=== PATIENT | female | born 1945 | race Caucasian/White ===

== ENCOUNTER → 2016-12-21 | Outpatient (CLI) | payer MEDICARE, OTHER ==
--- NOTE | 2016-12-21 14:44 | CT ---
Procedure: CT CHEST WITHOUT IV CONTRAST Exam Date: 12/21/2016 Ordering Provider: WAGNER LIGHT Clinical Indication: CHRONIC COUGH PAIN R05 Comparison: None TECHNIQUE: 5 mm images were taken through the chest without intravenous contrast material. Coronal and sagittal reformatted images were generated. This exam was performed according to our departmental dose optimization program which includes use of automated exposure control, adjustment of the mA and/or kV according to patient size and/or use of iterative reconstruction technique. FINDINGS: Lines/Tubes/Devices: None Lungs and large airways: Central airways are patent. No focal lung consolidation. There are a few subcentimeter calcified granulomas bilaterally. Atelectasis/scarring in the medial right lower lobe. Scarring in the lingula and left lower lobe. No suspicious lung lesions. Pleura: No pleural effusion. No pneumothorax. Mediastinum and laurent: No lymphadenopathy Heart and great vessels: Borderline cardiomegaly. No aortic aneurysm. Chest wall, lower neck, axillae: No axillary lymphadenopathy. Visualized thyroid is unremarkable. Upper abdomen: No acute abnormalities in the visualized upper abdomen. Bones: Nonacute IMPRESSION: 1. No acute abnormalities in the chest. 2. Borderline cardiomegaly. 3. Evidence of prior granulomatous disease. Electronically signed by: Fede Huitron MD 12/21/2016 2:43 PM CDT
--- NOTE | 2016-12-21 16:13 | CT ---
EXAM DESCRIPTION: Cervical Spine CLINICAL HISTORY: 71 years,Female,NECK PAIN. M54.2 COMPARISON: None TECHNIQUE: CT performed multiple axial helical tomographic images of the cervical spine from the skull base through T3. Then reconstructed sagittal coronal planes. FINDINGS: No evidence of fracture of the cervical spine. There is reversal lordotic curvature of the cervical spine. Surrounding soft tissues unremarkable. Dense and arch of C1: Unremarkable for age and volume mild ossified changes The lung apices and superior mediastinum unremarkable. Skull base and included paranasal sinuses unremarkable. C2-3: There is moderate loss of disc height. Minimal disc bulge. Facets are unremarkable for age. No neural foraminal stenosis. No spinal canal stenosis. C3-4: There is moderate to severe loss of disc height. Mild disc ossify complex with uncovertebral joint osteophytes. Facets are unremarkable for age. Mild to moderate right mild left neural foraminal stenosis. No spinal canal stenosis. C4-5: There is severely loss disc height. Mild broad-based disc ossify complex but with a large left uncovertebral joint osteophyte and side osteophyte. Facets are mildly hypertrophic worse on the left. Severe left neural foraminal stenosis. No spinal canal stenosis. C5-6: There is moderate to severe loss disc height. Mild broad-based disc ossify complex with moderate left uncovertebral osteophyte. Facets are age-appropriate hypertrophic. Moderate to severe left neural foraminal stenosis minimal right. No spinal canal stenosis. C6-7: There is moderate loss of disc height. Mild broad-based disc ossify complex with moderate left sided osteophyte and uncovertebral joint osteophyte. Facets are age-appropriate hypertrophy. Moderate left neural foraminal stenosis minimal right. No spinal canal stenosis. C7-T1: Demonstrates moderate to severe facet hypertrophy. No significant disc bulge or loss of disc height. And mild 1 to 2 mm of anterior degenerative fixation of C7 on T1. And moderate left neural foraminal stenosis. IMPRESSION: There is neural foraminal stenosis see mostly on the left beginning at C3-4 through C6-7 due mostly to uncovertebral joint osteophytes. And moderate on the right at C3-4. Disc ossify complexes throughout the cervical spine with reversal of lordotic curvature as described above. But no spinal canal stenosis. And the facet arthropathy is mostly mild throughout cervical spine but moderate to severe at C7-T1. Which results in some mild anterior degenerative subluxation and left moderate neural foraminal stenosis Electronically signed by: Andrew Miller MD 12/21/2016 4:12 PM CDT
--- NOTE | 2016-12-21 17:46 | US ---
EXAM DESCRIPTION: Thyroid CLINICAL HISTORY: 71 years, Female, NONTOXIC GOITER COMPARISON: None. TECHNIQUE: Multiple real-time sonographic images were obtained of the thyroid. FINDINGS: The right lobe demonstrates a few small heterogenous but mostly hypoechoic well described nodule seen. Both and upper lobe. The largest 8 x 4 mm and the other one is 3 x 2 mm The left lobe demonstrates similar-appearing nodules in the upper lobe measuring 7 x 3 and 6 x 3 mm The right lobe measures 4.2 cm in length by 1.7 x 1.2 cm. The left lobe measures 4.7 cm in length by 1.6 x 1.4 cm. And the isthmus measures 3 mm in thickness. Surrounding soft tissues are unremarkable. IMPRESSION: Two small nonspecific but most likely benign nodule seen in each upper lobe of the thyroid Electronically signed by: Andrew Miller MD 12/21/2016 5:46 PM CDT
== END | disposition home or self-care (01) ==
LOC: CT 07:42
PROVIDERS: ATTEND Family Medicine
DX: M54.2 Cervicalgia (principal); R05 Cough; E04.9 Nontoxic goiter, unspecified

== ENCOUNTER → 2017-10-03 | Outpatient (CLI) | payer MEDICARE, OTHER | END | disposition home or self-care (01) | LOC: MAMMO 16:30 | PROVIDERS: ATTEND Internal Medicine | DX: Z12.31 Encounter for screening mammogram for malignant neoplasm of breast (principal) ==

== ENCOUNTER → 2018-10-13 | Outpatient (CLI) | payer MEDICARE, OTHER ==
--- NOTE | 2018-10-14 17:29 | MAM ---
EXAM DESCRIPTION: 3D Screening BILATERAL : Digital Mammography. CLINICAL HISTORY: 73 years Female SCREENING . No complaints or personal history of breast cancer. Remote family history of breast cancer. Childbirth. Postmenopausal. No HRT. Bilateral cyst aspirations and benign left breast biopsy.. Lifetime risk of developing breast cancer (Tyrer-Cuzick model)(%): 4.7. COMPARISON: Bilateral screening digital breast tomosynthesis 10/03/2017.. TECHNIQUE: Bilateral CC and MLO projection full-field images, digital tomosynthesis mammographic technique. Bilateral digital 2-D full-field MLO images. CAD not available for tomosynthesis or 2-D images. FINDINGS: The breast parenchymal density pattern is: Scattered areas of fibroglandular density. No skin thickening or nipple retraction. Left axillary lymph nodes. Bilateral solitary microcalcifications. Group of benign type calcifications in the anterior right breast. No new focal, stellate mass or density, focal asymmetry , and no suspicious microcalcifications bilaterally. Stable mammograms compared to prior study. IMPRESSION: Benign exam. BIRAD CATEGORY: 2 BENIGN FINDINGS. RECOMMENDATIONS: FOLLOW UP: Routine digital bilateral mammographic screening, one year interval from September 2018. Written communication explaining the IMPRESSION and follow-up, will be mailed to the patient and referring health care provider. According to the [employer], yearly mammograms are recommended starting at age 40 and continuing as long as a woman is in good health. Any breast change noted on a breast self-exam should be reported promptly to the patient's healthcare provider. Breast MRI is recommended for women with an approximately 20-25% or greater lifetime risk of breast cancer, including women with a strong family history of breast or ovarian cancer and women who have been treated for Hodgkin's disease. A negative mammographic report should not delay tissue diagnosis in patients with significant clinical history or physical findings. Extremely dense breast tissue limits the sensitivity of digital mammography. Electronically signed by: Chucky Coe MD 10/14/2018 5:28 PM [employer]
== END ==
LOC: MAMMO 10:00
PROVIDERS: ATTEND Family Medicine
DX: Z12.31 Encounter for screening mammogram for malignant neoplasm of breast (principal)

== ENCOUNTER → 2019-10-16 | Outpatient (CLI) | payer MEDICARE, OTHER ==
--- NOTE | 2019-10-20 10:49 | MAM ---
EXAM DESCRIPTION: 3D Screening BILATERAL : Digital Mammography. CLINICAL HISTORY: 74 years Female ANNUAL SCREENING . No complaints. No personal history of breast cancer. Remote family history of breast cancer. Menarche age 15. Childbirth age 21. Menopause age "early 40s". Previous use of HRT but not currently. Bilateral benign cyst aspirations. Benign left breast biopsy. Lifetime risk of developing breast cancer (Tyrer-Cuzick model)(%): 6.2. COMPARISON: Bilateral screening digital breast tomosynthesis September 2018 and September 2017. TECHNIQUE: Bilateral CC and MLO projection full-field images, digital tomosynthesis mammographic technique. Bilateral digital 2-D full-field MLO images. CAD available for 2-D images. FINDINGS: The breast parenchymal density pattern is: Scattered areas of fibroglandular density. No skin thickening or nipple retraction. Bilateral solitary microcalcifications more on the left. Bilateral intramammary lymph nodes. No new focal, stellate mass or density, focal asymmetry , and no suspicious microcalcifications bilaterally. Stable mammograms compared to prior study. IMPRESSION: Benign exam. BIRAD CATEGORY: 2 BENIGN FINDINGS. RECOMMENDATIONS: FOLLOW UP: Routine digital bilateral mammographic screening, one year interval from September 2019. Written communication explaining the IMPRESSION and follow-up, will be mailed to the patient and referring health care provider. According to the [employer], yearly mammograms are recommended starting at age 40 and continuing as long as a woman is in good health. Any breast change noted on a breast self-exam should be reported promptly to the patient's healthcare provider. Breast MRI is recommended for women with an approximately 20-25% or greater lifetime risk of breast cancer, including women with a strong family history of breast or ovarian cancer and women who have been treated for Hodgkin's disease. A negative mammographic report should not delay tissue diagnosis in patients with significant clinical history or physical findings. Extremely dense breast tissue limits the sensitivity of digital mammography. Electronically signed by: Chucky Coe MD 10/20/2019 10:48 AM [facility]
== END ==
LOC: MAMMO 09:00
PROVIDERS: ATTEND Family Medicine
DX: Z12.31 Encounter for screening mammogram for malignant neoplasm of breast (principal)

== ENCOUNTER 2020-04-17 16:34 | Emergency (ER) | payer MEDICARE, OTHER ==
--- NOTE | 2020-04-17 17:08 | ED.PDOC ---
History of Present Illness - General Chief Complaint: Lower Extremity Injury Stated Complaint: Left knee pain, left calf swelling Time Seen by Provider: 04/17/20 17:03 - History of Present Illness Initial Comments: Javier 75 yo F with a PMH of HTN and OA, comes in with Right knee pain and leg swelling, States she had bilateral knee replacement 10 years ago. has issues off and on, but last night could not sleep because her knees were bothering her. She also felt her right leg was swollen and sore from the posterior calf to thigh. no recent travel or recent surgery. Does think she is less mobile than usual. no hx of blood clot. Notice some burising on her posterior calf so she came in. BP elevated on arrival. denies cp/sob/abdominal pain/n/v/d. no change in vision. States she just took her BP med prior to coming in.does not check her bp at home. no cardiac history patient does note shes been drinking a lot of caffeine Allergies/Adverse Reactions: Allergies Azithromycin [From Zithromax] Allergy (Severe, Unverified 05/06/13 13:25) Cephalexin [From Keflex] Allergy (Severe, Unverified 05/06/13 13:23) Levofloxacin [From Levaquin] Allergy (Severe, Unverified 05/06/13 13:23) Moxifloxacin [From Avelox] Allergy (Severe, Unverified 05/06/13 13:23) Penicillins Allergy (Severe, Unverified 05/06/13 13:22) Pitavastatin [From Livalo] Allergy (Severe, Unverified 05/06/13 13:25) Pregabalin [From Lyrica] Allergy (Severe, Unverified 05/06/13 13:25) Rosuvastatin [From Crestor] Allergy (Severe, Unverified 05/06/13 13:24) Sulfa Drugs Allergy (Severe, Unverified 05/06/13 13:24) Home Medications: Ambulatory Orders Pantoprazole Tablet [Protonix] 40 mg PO DAILY 07/06/13 Aspirin [Aspirin Childrens] 81 mg PO BID 04/17/20 Meloxicam [Mobic] 15 mg PO DAILY 04/17/20 Nebivolol HCl [Bystolic] 20 mg PO DAILY 04/17/20 Review of Systems - Review of Systems Constitutional: Denies: diaphoresis, fever, malaise EENTM: Denies: eye pain, blurred vision, tearing Respiratory: Denies: cough, orthopnea, short of breath, stridor, wheezing Cardiology: Denies: chest pain, palpitations, syncope Gastrointestinal/Abdominal: Denies: abdominal pain, diarrhea, nausea, vomiting Genitourinary: Denies: dysuria, frequency Musculoskeletal: States: back pain - chronic L4 l5 back pain, denies loss of urine, or retention. no change in bowels, no numbness, joint pain, joint swelling, muscle pain. Denies: muscle stiffness Skin: Denies: change in hair/nails, dryness, lumps, rash Neurological: Denies: anxiety, depressed, headache, numbness, paresthesia, tingling, weakness Endocrine: Denies: excessive sweating, intolerance to cold, intolerance to heat Hematologic/Lymphatic: Denies: blood clots, easy bleeding, easy bruising All other Systems: Reviewed and Negative Past Medical History (General) - Patient Medical History Hx Stroke: No Hx of COPD: No Hx Cardiac Disorders: No Hx Congestive Heart Failure: No Hx Hypertension: Yes Hx Diabetes: No Hx Gastroesophageal Reflux: Yes Hx Cancer: No Family Medical History - Family History Father Hx Cardiac Disease: Yes - [place] Physical Exam - Physical Exam General Appearance: Alert, Comfortable, Well Developed, Well Groomed, Well Nourished Eyes, Ears, Nose, Throat: PERRL/EOMI, normal ENT inspection Neck: non-tender, supple, normal inspection Cardiovascular/Respiratory: regular rate, rhythm, no M/R/G, normal peripheral pulses, no JVD, normal breath sounds, no respiratory distress Gastrointestinal/Abdominal: non-tender, no organomegaly, guarding, tenderness Back: normal inspection, no CVA tenderness, no vertebral tenderness Thigh/Hip: other - trace to none nonpitting swelling, tenderness along posterior calf, no bruise appreciated. Leg: normal inspection - mild tenderness as noted above , no evidence of injury, normal ROM, swelling - mild posterior swelling just distal to knee Knee: normal inspection, non-tender, no evidence of injury, normal ROM, deformity, swelling, other - no erythema or tenderness no sign of infection DTR - Lower Extremities: 2+: Patellar, left, Patellar, right Neuro/Tendon: normal sensation, normal motor functions Mental Status: alert, oriented x 3 Skin: normal color, warm/dry Progress - Progress Progress: Will get d-dimer due to low probability of dvt. 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 EKG showed incomplete LBBB. poor r wave progression, none prior to compare. NSR with rate 69. Troponin negative. BMP 164, most likely has a degree of heart failure with normal EF from chronic htn, no evidence of acute CHF exacerbation currently. CBC and CMP unremarkable. D-dimer 550. knee xray showed no evidence of knee replacement displacement. Did show effusion. no fever, erythema or significant knee pain, aspiration not indicated at this time. Venous US showed no evidence of DVT. Patient has hx of uncontrolled htn. She is to call tomorrow to schedule follow up. The data reviewed when caring for this patient included: nurse notes etc. The history and assessments from nurses notes were reviewed and considered, and the patient's home medication list was also reviewed and considered. My assessment and the results of testing completed here in the ED were discussed with the patient/friend. All questions were answered, and they express understanding of my assessment and the plan. They have been instructed to return if their symptoms worsen, and have been asked to follow up with their primary care physician to recheck today's presenting complaint. Biling code 801 04/17/20 18:38 04/17/20 18:39 04/17/20 20:05 04/17/20 20:07 04/17/20 20:09 Departure - Departure Clinical Impression: Knee pain, Leg pain, posterior, Hypertension Time of Disposition: 19:54 Disposition: Discharge to Home or Self Care Condition: Good Departure Forms: ED Discharge - Pt. Copy, Patient Portal Self Enrollment Instructions: Electrocardiogram, DI for Leg Pain, Low Salt Diet, Knee Pain Activity: other - as tolerated Referrals: SAHIL ALEXANDRE MD [Primary Care Provider] - 1-2 Days Home Medications: Ambulatory Orders Pantoprazole Tablet [Protonix] 40 mg PO DAILY 07/06/13 Aspirin [Aspirin Childrens] 81 mg PO BID 04/17/20 Meloxicam [Mobic] 15 mg PO DAILY 04/17/20 Nebivolol HCl [Bystolic] 20 mg PO DAILY 04/17/20 Additional Instructions: follow up with PCP as well as your orthopedic physician in [facility]
--- NOTE | 2020-04-17 18:06 | RAD ---
EXAM DESCRIPTION: XR Chest, 2 Views CLINICAL HISTORY: 75 years Female hypertension, swelling of LE TECHNIQUE: Two views of the chest. COMPARISON: No prior exams provided for comparison. FINDINGS: The lungs are clear without focal consolidation, effusion, or pneumothorax. The cardiomediastinal silhouette and central pulmonary vasculature are normal. No acute osseous abnormalities. IMPRESSION: No acute cardiopulmonary abnormalities. Electronically signed by: Tammy Guzman MD 04/17/2020 6:04 PM CDT
[2020-04-17 18:07] VITALS: O2SAT 97
--- NOTE | 2020-04-17 18:07 | RAD ---
EXAM DESCRIPTION: XR Knee, Left Complete CLINICAL HISTORY: 75 years Female knee pain TECHNIQUE: Three views of the left knee are provided. COMPARISON: No prior exams provided for comparison. FINDINGS: Patient is status post prior cemented total left knee arthroplasty with patellar resurfacing. No evidence of hardware loosening, fracture, or dislocation. Difficult to exclude a small suprapatellar joint effusion. No aggressive osseous lesion or soft tissue gas. IMPRESSION: Prior left knee arthroplasty without acute osseous abnormality. Possible small left suprapatellar joint effusion. If there is concern for infection, consider aspiration. Electronically signed by: Tammy Guzman MD 04/17/2020 6:06 PM CDT
[2020-04-17] MEDS ORDERED: HYDROcodone 5MG/APAP 325MG 1 EA TAB PO ONE (18:36)
[2020-04-17 20:06] VITALS: BP 193/109; TEMP 97.9
--- NOTE | 2020-04-17 20:06 | US ---
EXAM DESCRIPTION: Venous,Lower Extremity LT CLINICAL HISTORY: 75 years, Female, leg pain,s welling, high ddimer COMPARISON: None. FINDINGS: Duplex imaging of the deep venous system of left lower extremity was performed with visualization from the common femoral veins to the popliteal veins and posterior tibial vein. There is normal compressibility, augmentation and flow with no visualized thrombus. No focal fluid collection is identified. IMPRESSION: Negative for DVT in the left lower extremity. Electronically signed by: Edmund Mejia DO 04/17/2020 8:04 PM CDT
== END 2020-04-17 20:08 | disposition home or self-care (01) ==
LOC: ER 16:34
DX: M25.562 Pain in left knee (principal); M79.662 Pain in left lower leg; I10 Essential (primary) hypertension; K21.9 Gastro-esophageal reflux disease without esophagitis; I44.7 Left bundle-branch block, unspecified; Z96.653 Presence of artificial knee joint, bilateral; Z79.82 Long term (current) use of aspirin; Z79.899 Other long term (current) drug therapy; Z88.8 Allergy status to other drugs, medicaments and biological substances; Z88.1 Allergy status to other antibiotic agents; Z88.0 Allergy status to penicillin; Z88.2 Allergy status to sulfonamides

== ENCOUNTER → 2020-04-29 | Outpatient (CLI) | payer MEDICARE, OTHER ==
--- NOTE | 2020-04-29 13:18 | MRI ---
Study: MRI of the Left Tibia/Fibula. Indication: PAIN LOWER LEG Technique: Multiplanar, multi sequence MRI of the left tibial/fibula was obtained without intravenous contrast. Comparison: Ultrasound and radiographs April 11 6020. Findings: Scattered moderate subcutaneous edema about the left lower leg without drainable/organized fluid collection. There is mild intramuscular edema within the inferolateral aspect of the medial gastrocnemius muscle and adjacent minimal edema in the lateral gastrocnemius muscle. Edema tracks along the superficial fascial planes of these muscles. Findings likely reflect sequela of muscle strain. Myositis is also a consideration. No muscle tear. No acute fracture or left tibia or fibula. Impression: Subtle intramuscular edema within the gastrocnemius musculature, likely muscle strains or myositis. No muscle tear Subcutaneous edema throughout the left lower leg without drainable fluid collection. No acute fracture of the left tibia or fibula. Electronically signed by: Erik Washington MD 04/29/2020 1:17 PM CDT
== END ==
LOC: MRI 07:00
PROVIDERS: ATTEND Family Medicine
DX: M79.605 Pain in left leg (principal); R60.9 Edema, unspecified

== ENCOUNTER → 2020-05-03 | Outpatient (CLI) | payer MEDICARE, OTHER | LOC: GMAE 16:42 | PROVIDERS: ATTEND Family Medicine | DX: M60.062 Infective myositis, left lower leg (principal) ==

== ENCOUNTER → 2020-06-10 | Outpatient (CLI) | payer MEDICARE, OTHER ==
--- NOTE | 2020-06-10 13:59 | RAD ---
EXAM DESCRIPTION: Pelvis CLINICAL HISTORY: HIP PAIN LEFT COMPARISON: None. TECHNIQUE: AP pelvis FINDINGS: Mild degenerative changes are observed in the lower lumbar spine. The pelvis is intact. No fracturing is detected. The proximal femurs are unremarkable. No pelvic mass is observed. A phlebolith is seen in the right side of the pelvis. Mild osteopenia is observed. No fracturing is detected. IMPRESSION: No pelvic or hip fracturing is detected. Electronically signed by: Andrew Gibson MD 06/10/2020 1:58 PM CDT
--- NOTE | 2020-06-10 14:00 | RAD ---
EXAM DESCRIPTION: Knee,Left 1 or 2 Views CLINICAL HISTORY: PAIN IN LEFT KNEE COMPARISON: 17 April 2020 TECHNIQUE: Lateral view of the left knee FINDINGS: A total knee arthroplasty is observed. A joint effusion is evident. No evidence of loosening or infection is seen. No fracturing is detected. IMPRESSION: Lateral view of the knee reveals a total knee arthroplasty and evidence of a joint effusion. Electronically signed by: Andrew Gibson MD 06/10/2020 1:59 PM CDT
== END ==
LOC: RAD 09:02
PROVIDERS: ATTEND Orthopaedic Surgery
DX: M25.569 Pain in unspecified knee (principal); M25.552 Pain in left hip; M25.462 Effusion, left knee; Z96.652 Presence of left artificial knee joint